=== PATIENT | male | born 1975 | race Two or more races ===

== ENCOUNTER 2018-01-21 15:17 | Emergency (ER) | payer OTHER ==
[~2018-01-21] VITALS: Ht 172.7 cm; Wt 77.1 kg
[2018-01-21 15:40] VITALS: BP 117/70
== END 2018-01-21 16:58 | disposition home or self-care (01) ==
LOC: ER 15:26
DX: S09.90XA Unspecified injury of head, initial encounter (principal); M54.16 Radiculopathy, lumbar region; W19.XXXA Unspecified fall, initial encounter; Y93.89 Activity, other specified; Y99.8 Other external cause status; Y92.89 Other specified places as the place of occurrence of the external cause
CPT/HCPCS: 70450; 72100